=== PATIENT | female | born 2000 | race Caucasian/White ===

== ENCOUNTER 2022-10-31 14:27 | Emergency (ER) | payer OTHER ==
[2022-10-31] MEDS: diphenhydrAMINE 50 MG/ML SDV IVPUSH ONE (15:47)
[2022-10-31] MEDS: Sodium Chloride 0.9% 1,000 ML IV ONE (15:47)
[2022-10-31] MEDS: Prochlorperazine 10 MG/2 ML SDV IV ONE (15:49)
[2022-10-31 15:55] VITALS: BP 117/72; PULSE 102
[2022-10-31] MEDS: Ketorolac 15 MG/ML SDV IVPUSH ONE (15:58)
== END 2022-10-31 16:45 | disposition home or self-care (01) ==
LOC: MERGE 14:27 → VM.ED 14:27
DX: S06.0X0A Concussion without loss of consciousness, initial encounter (principal); E11.9 Type 2 diabetes mellitus without complications; E66.9 Obesity, unspecified; Z68.30 Body mass index [BMI] 30.0-30.9, adult; Z88.0 Allergy status to penicillin
CPT/HCPCS: 96361; 96374; 96375; 99283-25; 99284; J0780; J1200; J1885; J7030

== ENCOUNTER 2024-01-10 01:17 | Emergency (ER) | payer OTHER ==
[2024-01-10 02:06] VITALS: BP 142/93; PULSE 79
== END 2024-01-10 01:55 | disposition home or self-care (01) ==
LOC: VM.ED 01:17
DX: S30.1XXA Contusion of abdominal wall, initial encounter (principal); E11.9 Type 2 diabetes mellitus without complications; E66.9 Obesity, unspecified; Z68.41 Body mass index [BMI] 40.0-44.9, adult; Z79.899 Other long term (current) drug therapy; Z88.0 Allergy status to penicillin; W50.1XXA Accidental kick by another person, initial encounter
CPT/HCPCS: 99283

== ENCOUNTER 2024-02-23 12:38 | Emergency (ER) | payer OTHER ==
[2024-02-23 13:17] VITALS: BP 143/76; PULSE 93
[2024-02-23] MEDS: diphenhydrAMINE 50 MG/ML SDV IM ONE (13:21)
[2024-02-23] MEDS: methylPREDNISolone Sodium Succinate 125 MG/2 ML SDV IM ONE (13:21)
== END 2024-02-23 14:30 | disposition home or self-care (01) ==
LOC: VM.ED 12:38
DX: B34.9 Viral infection, unspecified (principal); L50.9 Urticaria, unspecified; E11.9 Type 2 diabetes mellitus without complications; Z88.0 Allergy status to penicillin; Z91.048 Other nonmedicinal substance allergy status; Z79.899 Other long term (current) drug therapy
CPT/HCPCS: 96372; 99283; J1200; J2930